=== PATIENT | male | born 1980 | race African-American/Black ===

== ENCOUNTER 2016-10-03 17:24 | Inpatient (IN) | payer OTHER ==
--- NOTE | ~2016-10-03 | PN ---
Unit #: [id number] #: [id number] Patient: JAVIER HOWELL [id number] [facility] [address] [place] [address] [id number] MR#: [id number] NAME: JAVIER HOWELL ROOM: P251 Age: 36 Sex: M Admission Date: 10/03/2016 : 1980 Attending Physician: Bobby Hickman M.D. Admitting Physician: Bobby Hickman M.D. Primary Care Physician: Generic Doctor Not In System [facility] PROGRESS NOTES DATE October 06, 2016 DISCUSSION Mr. Howell is a 36-year-old white male, who was seen today and chart was reviewed and the case was discussed with the staff. He appears to be doing much better and has been calm and cooperative with treatment recommendations and he has been taking the medications and tolerating them fairly well. He denies any suicidal or homicidal ideations, and as such he will be maintained on his current treatment protocol and will monitor his response and make further adjustments as needed. Dictated by... Sahil Taylor/himanshu TD: 10/07/2016 14:12 JOB #: [id number] [facility] PROGRESS NOTES Page 1 of 1 X Bobby Hickman MD PROGRESS NOTE
--- NOTE | ~2016-10-03 | PA ---
Unit #: [id number] #: [id number] Patient: JAVIER HOWELL [id number] [facility] [address] [place] [address] [id number] I MR#: [id number] NAME: JAVIER HOWELL ROOM: P251 Age: 36 Sex: M Admission Date: 10/03/2016 : 1980 Date of Assessment: 10/04/2016 Attending Physician: Bobby Hickman M.D. Admitting Physician: Bobby Hickman M.D. Primary Care Physician: Generic Doctor Not In System PSYCHIATRIC ASSESSMENT DATE OF SERVICE 10/04/2016. IDENTIFYING DATA Mr. Howell is a 36-year-old male, who is a resident of [place], [place], and was transferred to us from [facility] where he was initially assessed by the [facility]. CHIEF COMPLAINT "I've been under stress recently." HISTORY OF PRESENT ILLNESS Mr. Howell is a 36-year-old male, who brought himself to the hospital. He reports increasing depression and that he is in distress and recently in the hospital in July for seizures due to stress and he is currently homeless and the weather is not good for his dog who was with him in the emergency room and reports that he has proof that the dog is a service dog due to the stress and seizure that he experiences and that his mood is up and down and he has been seeking help with his mood and depression and that he needs assistance with housing and that he has no plan or intent to kill himself, but does report thoughts of suicide. He reports that he has a sleeping disorder and stating he cannot fall sleep and reports that he is homeless and is on the street and has been decompensating and has been having thoughts of killing himself and as such, a recommendation for inpatient level of care for safety and stabilization was made and the patient was transferred to us. SUBSTANCE ABUSE HISTORY The patient denies any history of alcohol or drug abuse. PAST PSYCHIATRIC HISTORY The patient has had multiple inpatient psychiatric hospitalizations over the years as he has been to [facility] at least 3 times, in addition to being at the [facility] and other facilities and has been diagnosed and treated for mood disorder. He is currently not active in any treatment program, is not seeing a psychiatrist, and is not taking any psychotropic medications. PAST MEDICAL HISTORY The patient's medical history is significant for seizure disorder. ALLERGIES No known medication allergies. Unit #: [id number] #: [id number] Patient: JAVIER HOWELL PERSONAL AND SOCIAL HISTORY A 36-year-old male, who reports that he is single, unemployed, and essentially homeless and has poor social support system. MENTAL STATUS EXAMINATION Young male, who was casually dressed with fair personal hygiene, appears to be in no acute distress or discomfort. He was awake and alert on interaction with intact orientation. His mood was anxious and depressed with a congruent affect. His speech was slow and restricted in content. His thought processes were disorganized with some looseness of associations and flight of ideas. His insight and judgment remain significantly impaired. DIAGNOSTIC IMPRESSION Psychiatric: Major depressive disorder, recurrent, moderate, without psychotic features and generalized anxiety disorder. Medical: Seizure disorder. Stressors: Moderate psychosocial stressors. TREATMENT PLAN 1. The patient has presented with a history of mood disorder and has been decompensating and will need inpatient hospitalization for safety and stabilization. We will start him back on his home medications and we will adjust the medications and monitor response. 2. Supportive therapy was provided to the patient. 3. Safe, structured, and nourishing environment will be provided. ESTIMATED LENGTH OF STAY 5 to 7 days. ABILITY TO HELP SELF Limited. WILLINGNESS TO HELP SELF The patient appears to be willing to help self. STRENGTHS 1. Communicative. 2. Cooperative. PROBLEMS 1. Chronic dysphoric symptoms. 2. Poor social support system. DISCHARGE CRITERIA This will be contingent upon the patient's ability to show resolution of his depression and anxiety and his ability to stay safe to himself, particularly after discharge from the hospital. Dictated by... Sahil Taylor/hernando TD: 10/04/2016 19:39 JOB #: [id number] Unit #: [id number] #: [id number] Patient: JAVIER HOWELL PSYCHIATRIC ASSESSMENT Page 1 of 1 X Bobby Hickman MD PSYCHIATRIC ASSESSMENT
--- NOTE | ~2016-10-03 | PN ---
Unit #: [id number] #: [id number] Patient: JAVIER HOWELL [id number] [facility] [address] [place] [address] [id number] I MR#: [id number] NAME: JAVIER HOWELL ROOM: P251 Age: 36 Sex: M Admission Date: 10/03/2016 : 1980 Attending Physician: Bobby Hickman M.D. Admitting Physician: Bobby Hickman M.D. Primary Care Physician: Generic Doctor Not In System [facility] PROGRESS NOTES DATE October 05, 2016 DISCUSSION Mr. Howell is a 36-year-old white male, who was seen today and chart was reviewed and the case was discussed with the staff. He has been doing fairly well with no agitation, irritability and cooperative with the treatment recommendations. He has been taking the medications and tolerating them fairly well. MENTAL STATUS EXAMINATION Young white male, who was casually dressed with fair personal hygiene and appears to be in no acute distress or discomfort. He was awake and alert with intact orientation. His mood is anxious with a congruent affect. He denies any suicidal or homicidal ideations. His insight and judgment remain slightly impaired. TREATMENT PLAN We will continue him on his current medications and treatment protocol, and will monitor his response, and make further adjustments as needed. Dictated by... Sahil Taylor/himanshu TD: 10/06/2016 13:10 JOB #: [id number] [facility] PROGRESS NOTES Page 1 of 1 X Bobby Hickman MD PROGRESS NOTE
--- NOTE | ~2016-10-03 | DS ---
Unit #: [id number] #: [id number] [facility]: [facility] [id number] [facility] [place] [address] [id number] I MR#: [id number] NAME: JAVIER HOWELL ROOM: [facility] Age: 36 Sex: M Admission Date: 10/03/2016 : 1980 Discharge Date: 10/06/2016 Attending Physician: Bobby Hickman M.D. Primary Care Physician: Generic Doctor Not In System DISCHARGE SUMMARY IDENTIFYING DATA Mr. Howell is a 36-year-old white male who was brought to the hospital with depression and suicidal ideations. DISCHARGE DIAGNOSES Psychiatric: Schizoaffective disorder, bipolar type, most recent episode depressed, recurrent, moderate, without psychotic features. Medical: Marfan syndrome, seizure disorder. Stressors: Moderate psychosocial stressors. HISTORY OF PRESENT ILLNESS Please see initial psychiatric evaluation for details. PAST PSYCHIATRIC HISTORY Please see initial psychiatric evaluation for details. PAST MEDICAL HISTORY Please see initial psychiatric evaluation for details. HOSPITAL COURSE The patient was admitted to the adult psychiatric unit at [facility] christopher Laurent and was oriented to the hospital environment. Routine p.r.n. medications were initiated, and he was started back on his home medications and medications were adjusted. Vistaril was also given to help him with the anxiety and he was closely monitored. He was taking the medications regularly and was tolerating them fairly well and was able to show a decent therapeutic response and decided to continue treatment on an outpatient basis and was denying any suicidal or homicidal ideations and as such, it was decided that he will be discharged home and will continue treatment on an outpatient basis. DISCHARGE CONDITION Stable. PROGNOSIS Fair. Dictated by... Bobby Hickman M.D. IAA/modl Unit #: [id number] #: [id number] Patient: JAVIER HOWELL TD: 10/29/2016 13:21 JOB #: [id number] DISCHARGE SUMMARY Page 1 of 1 X Bobby Hickman MD X DISCHARGE SUMMARY
--- NOTE | ~2016-10-03 | HP ---
Unit #: [id number] #: [id number] Patient: JAVIER GARCIA [id number] [place] [address] [id number] MR#: [id number] NAME: JAVIER GARCIA ROOM: P251 Age: 36 Sex: M Admission Date: 10/03/2016 : 1980 Attending Physician: Bobby Hickman M.D. Admitting Physician: Bobby Hickman M.D. Primary Care Physician: Generic Doctor Not In System HISTORY AND PHYSICAL HISTORY OF PRESENT ILLNESS The patient is a 36-year-old male who states he was admitted due to depression and suicidal ideation. PAST MEDICAL HISTORY 1. Marfan syndrome. 2. Depression. 3. Bipolar disorder. 4. Seizures. 5. Schizoaffective disorder. 6. Anxiety. PAST SURGICAL HISTORY 1. Dental procedures. 2. Tonsillectomy. 3. Right wrist. ALLERGIES Patient states none. SOCIAL HISTORY Positive for smoking. Negative for drugs or alcohol, although patient states that prior to admission, he spent $6 on crack cocaine. FAMILY HISTORY Noncontributory. REVIEW OF SYSTEMS CONSTITUTIONAL: No fever or chills. HEENT: Denies any sore throat, ear pain or runny nose. CARDIOVASCULAR: Denies chest pain, irregular heart rhythm or palpitations. CHEST: Denies shortness of breath or cough. No hemoptysis. GASTROINTESTINAL: Denies nausea, vomiting, diarrhea or chronic constipation. ENDOCRINE: Denies history of increased thirst or urination. No recent significant weight loss or gain. GENITOURINARY: Denies dysuria, frequency, or hematuria. SKIN: Denies any rashes. HEMATOLOGIC: Denies history of increased bleeding or bruising. MUSCULOSKELETAL: Denies any hot, swollen joints. No generalized muscle pain. NEUROLOGIC: Denies problems with vision or speech. No frequent, severe headaches. No numbness, tingling or weakness in any extremities. Denies Unit #: [id number] #: [id number] Patient: JAVIER GARCIA loss of bladder or bowel control. CURRENT MEDICATIONS Keppra 500 mg p.o. b.i.d. PHYSICAL EXAMINATION GENERAL: Alert, oriented, in no acute distress. VITAL SIGNS: Temperature 97.4, heart rate 81, respirations 16, blood pressure 107/69. HEIGHT: 6 feet 4 inches. WEIGHT: 174 pounds. SKIN: Warm and dry without rash or lesion. Red area to the bilateral forearms and left chest. HEENT: Normocephalic. TMs not viewed. Oral and nasal passages clear. Conjunctivae clear. PERRLA. EOMs intact. NECK: Supple without lymphadenopathy or thyromegaly. HEART: Regular rate and rhythm without murmur. LUNGS: Clear. ABDOMEN: Soft, nontender, without masses or hepatosplenomegaly. : Not done. EXTREMITIES: No evidence of cyanosis, clubbing or edema. Moves all without focal deficit. NEUROLOGICAL: Grossly within normal limits. Cranial Nerves: II: Visual shepherd are intact. III, IV AND : Extraocular movements are intact. Pupils are equal, round and reactive to light. V: Facial sensation is grossly normal. VII: Facial movements and expression are normal. VIII: Auditory acuity grossly intact. IX, X: Uvula is midline. Phonation is normal. XI: Patient shrugs shoulders and turns head normally. XII: Tongue protrudes in the midline. Sensory and Motor Function: Sensory and motor sensation is grossly normal. Motor: moves all extremities well. Coordination: Gait is normal. Deep Tendon Reflexes: Intact. IMPRESSION Psychiatric admission. RECOMMENDATIONS PSYCHIATRIC: Per psychiatrist. MEDICAL: No contraindication to participate in facility's activities. MEDICAL PROGNOSIS Good. Dictated by... Dustin Dorantes/isael TD: 10/04/2016 15:03 JOB #: [id number] Unit #: [id number] #: [id number] Patient: JAVIER GARCIA HISTORY AND PHYSICAL Page 1 of 1 X Natalie Turner APR X HISTORY AND PHYSICAL
== END 2016-10-06 15:00 | disposition left against medical advice (07) | DRG 885 ==
LOC: P2L 21:49
DX: F33.1 Major depressive disorder, recurrent, moderate (principal); R45.851 Suicidal ideations; F17.210 Nicotine dependence, cigarettes, uncomplicated; F41.1 Generalized anxiety disorder